=== PATIENT | female | born 1955 ===

== ENCOUNTER → 2023-07-18 11:35 | Outpatient (AMB) | payer MEDICARE, MEDICAID, SELFPAY ==
--- NOTE | 2023-07-18 11:52 | MHC.OFFWIV ---
Intake Vital Signs 07/18/23 12:01 Weight 206 lb 4 oz BP 122/72 Blood Pressure Location Rt brachial Position Sitting Respiration 14 Pulse 77 Pulse Source Pulse Oximeter Temp 98.1 F Temp Source Oral Pulse Oximetry (%) 97 Oxygen Delivery Method Room Air Intake Visit Reasons: White Tongue patch Intake Note: White spots on tongue. Takes Dulera but she is unsure of strength Patient Tobacco Use Status: Never used Tobacco Allergies indomethacin Allergy (Unknown, Verified 07/18/23 12:00) Unknown codeine Allergy (Verified 07/18/23 12:00) Rash Medication List - Last Reconciled 07/18/23 by Zina Dee PA-C albuterol sulfate 90 mcg/actuation inhalation budesonide-formoterol 80-4.5 mcg/actuation (Symbicort) 2 puffs inhalation BID magnesium oxide 400 mg PO DAILY omega 5-[id number]-fish oil 1,000 mg (120 mg-180 mg) (Fish Oil) 1 cap PO DAILY Do you need a note to return to daycare/school/sports/work: No HPI White Tongue patch HPI Details Pt is a 68 y/o female who presents today with complaints of 2 white patches on her tongue. Symptoms started using Dulera. She thinks that it is giving her thrush. No sore throat. States that she does rinse her mouth out with each use but does not use any Listerine. Denies any sinus pain or pressure, congestion, fevers or chills. No tobacco products. No difficulty swallowing or swelling in her neck. She does have a dentist but has not seen her dentist in some time. PFSH Social History Patient Tobacco Use Status: Never used Tobacco Physical Exam Vital Signs: Last Vital Signs Temp 98.1 F 07/18/23 12:01 Pulse 77 07/18/23 12:01 Resp 14 07/18/23 12:01 BP 122/72 07/18/23 12:01 Pulse Ox 97 07/18/23 12:01 Oxygen Delivery Method Room Air 07/18/23 12:01 HEENT Ears: hearing grossly normal bilaterally and TM's normal bilaterally General nose exam: Normal nasal mucous membranes and turbinates present Face and sinus: Yes sinuses nontender Mouth: tongue abnormal with white coating (It does scrape off) Throat: Yes posterior oropharynx normal Neck Thyroid: Thyroid normal Lymphatic: no lymphadenopathy noted Resp Auscultation: clear to auscultation bilaterally Cardio Rate: regular rate Rhythm: regular rhythm Heart sounds: S1 normal heart sound present and S2 normal heart sound present Skin General skin exam: no rashes or lesions noted Assessment & Plan Assessment & Plan (1) Thrush: Code(s): B37.0 - Candidal stomatitis Plan: We will try nystatin swish and swallow. Advised patient to follow up if no improvement or if anything worsens or changes. Encouraged proper oral hygiene and rinsing mouth out with inhalers. Patient understands and agrees with this plan. Medications: New nystatin swish and swallow 5 mL PO QID 200 mL 0RF 10 days Coding Level of Care Code Est Pt Level 3 (70069) Diagnoses Thrush B37.0
[2023-07-18 12:01] VITALS: BP 122/72; PULSE 77; RESP 14; TEMP 36.7; O2SAT 97
== END ==
PROVIDERS: PCP Internal Medicine; Visit Provider Physician Assistant
DX: B37.0 Candidal stomatitis (principal)
CPT/HCPCS: 99213